=== PATIENT | male | born 1990 | race Native Hawaiian/Other Pacific Islander ===

== ENCOUNTER 2018-06-03 12:04 | Emergency (ER) | payer OTHER ==
[~2018-06-03] VITALS: Ht 180.3 cm; Wt 83.9 kg
[2018-06-03 12:20] VITALS: TEMP 98.9
[2018-06-03 15:20] VITALS: BP 133/89
== END 2018-06-03 15:20 | disposition home or self-care (01) ==
LOC: ED 12:04
PROC: 2W3CX1Z Immobilization of Right Lower Arm using Splint (ICD-10-PCS; principal; 2018-06-03)
DX: S62.306A Unspecified fracture of fifth metacarpal bone, right hand, initial encounter for closed fracture (principal); S62.606A Fracture of unspecified phalanx of right little finger, initial encounter for closed fracture; S62.604A Fracture of unspecified phalanx of right ring finger, initial encounter for closed fracture; V86.99XA Unspecified occupant of other special all-terrain or other off-road motor vehicle injured in nontraffic accident, initial encounter
CPT/HCPCS: 99283; J1885